=== PATIENT | female | born 1995 | race Caucasian/White ===

== ENCOUNTER → 2017-08-29 | Outpatient (CLI) | payer MEDICAID | LOC: FIMAGING 12:02 | PROVIDERS: ATTEND Obstetrics & Gynecology | DX: Z36 Encounter for antenatal screening of mother (principal); Z3A.19 19 weeks gestation of pregnancy; O26.872 Cervical shortening, second trimester; O26.892 Other specified pregnancy related conditions, second trimester ==

== ENCOUNTER → 2017-11-07 | Outpatient (CLI) | payer MEDICAID | LOC: FIMAGING 13:12 | PROVIDERS: ATTEND Obstetrics & Gynecology | DX: Z34.92 Encounter for supervision of normal pregnancy, unspecified, second trimester (principal); Z3A.29 29 weeks gestation of pregnancy; Z20.828 Contact with and (suspected) exposure to other viral communicable diseases ==

== ENCOUNTER → 2017-12-23 | Outpatient (CLI) | payer MEDICAID | LOC: FIMAGING 13:24 | PROVIDERS: ATTEND Obstetrics & Gynecology | DX: Z34.93 Encounter for supervision of normal pregnancy, unspecified, third trimester (principal); Z3A.36 36 weeks gestation of pregnancy ==